=== PATIENT | male | born 1945 | race Caucasian/White ===

== ENCOUNTER → 2017-08-24 | Outpatient (CLI) | payer MEDICARE, BC ==
[~2017-08-24] MED LIST: ASPI-496 PO; ATOR10TA PO; CALC200T20 PO; CHOL10002 PO; FEBU40TA PO; MULT-717 PO; QUIN10TA15 PO
== END | disposition home or self-care (01) ==
LOC: CFH 15:20
PROVIDERS: ATTEND Internal Medicine Nephrology
DX: N28.1 Cyst of kidney, acquired (principal); I12.9 Hypertensive chronic kidney disease with stage 1 through stage 4 chronic kidney disease, or unspecified chronic kidney disease; N18.3 Chronic kidney disease, stage 3 (moderate); D63.1 Anemia in chronic kidney disease; R73.01 Impaired fasting glucose; I48.0 Paroxysmal atrial fibrillation; E55.9 Vitamin D deficiency, unspecified; E78.5 Hyperlipidemia, unspecified; M19.90 Unspecified osteoarthritis, unspecified site; M10.9 Gout, unspecified
CPT/HCPCS: 76770

== ENCOUNTER → 2017-10-25 | Outpatient (CLI) | payer MEDICARE, BC ==
[~2017-10-25] MED LIST changes: +REGADENOSON 0.4 MG/5 ML SYRINGE ONE
== END | disposition home or self-care (01) ==
LOC: CFH 07:50
PROVIDERS: ATTEND Internal Medicine Cardiovascular Disease
DX: I35.8 Other nonrheumatic aortic valve disorders (principal); I10 Essential (primary) hypertension; I48.91 Unspecified atrial fibrillation
CPT/HCPCS: 78452; 93017; 93306; A9502; J2785

== ENCOUNTER 2019-11-08 10:11 | Day surgery (SDC) | payer MEDICARE, BC ==
[~2019-11-08] VITALS: Ht 185.4 cm; Wt 88.2 kg
[~2019-11-08 10:11] MED LIST changes: -REGADENOSON 0.4 MG/5 ML SYRINGE ONE
[2019-11-08 10:42] VITALS: BP 146/106
[2019-11-08] MEDS ORDERED: ICOS1CAP PO (10:56)
[2019-11-08] MEDS ORDERED: MULT-464 PO (10:56)
[2019-11-08] MEDS ORDERED: CHOL10003 PO (10:56)
[2019-11-08] MEDS ORDERED: METH500T5 PO (10:56)
[2019-11-08] MEDS ORDERED: QUIN10TA15 PO (10:56)
[2019-11-08] MEDS ORDERED: CURAMED PO (10:56)
[2019-11-08] MEDS ORDERED: OMEG1CAP34 PO (10:56)
[2019-11-08] MEDS ORDERED: FEBU80TA2 PO (10:56)
[2019-11-08] MEDS ORDERED: CALC1TAB PO (10:56)
[2019-11-08] MEDS ORDERED: RIVA20TA PO (10:56)
[2019-11-08] MEDS ORDERED: SODI650T PO (10:56)
[2019-11-08] MEDS ORDERED: CYAN25009 PO (10:56)
[2019-11-08] MEDS ORDERED: OMEP-110 PO (10:56)
[2019-11-08] MEDS ORDERED: ROSU40TA PO (10:56)
[2019-11-08] MEDS ORDERED: PROPOFOL 10 MG/ML, 20ML ONE (12:27)
[2019-11-08] MEDS ORDERED: SODIUM CHLORIDE FLUSH 10ML SYR IVF SCH (21:00)
== END 2019-11-08 13:34 | disposition home or self-care (01) ==
LOC: CACL 10:11
PROVIDERS: ATTEND Internal Medicine Cardiovascular Disease
DX: I48.19 Other persistent atrial fibrillation (principal); I12.9 Hypertensive chronic kidney disease with stage 1 through stage 4 chronic kidney disease, or unspecified chronic kidney disease; N18.3 Chronic kidney disease, stage 3 (moderate); E78.49 Other hyperlipidemia; M10.9 Gout, unspecified; M19.90 Unspecified osteoarthritis, unspecified site; I70.90 Unspecified atherosclerosis; Z79.01 Long term (current) use of anticoagulants; Z79.82 Long term (current) use of aspirin; Z79.899 Other long term (current) drug therapy; Z98.890 Other specified postprocedural states
CPT/HCPCS: 92960; J2704

== ENCOUNTER → 2020-04-03 | Outpatient (CLI) | payer MEDICARE, BC ==
[~2020-04-03] MED LIST changes: +CALC1TAB PO; +CHOL10003 PO; +CURAMED PO; +CYAN25009 PO; +FEBU80TA2 PO; +ICOS1CAP PO; +METH500T5 PO; +MULT-464 PO; +OMEG1CAP34 PO; +OMEP-110 PO; +RIVA20TA PO; +ROSU40TA PO; +SODI650T PO
== END | disposition home or self-care (01) ==
LOC: STAR 11:48
PROVIDERS: ATTEND Anesthesiology
DX: Z20.828 Contact with and (suspected) exposure to other viral communicable diseases (principal)
CPT/HCPCS: 87635

== ENCOUNTER 2020-04-07 07:16 | Observation (INO) | payer MEDICARE, BC ==
[~2020-04-07] VITALS: Ht 185.4 cm; Wt 89.0 kg
[2020-04-07] MEDS ORDERED: SODIUM CHLORIDE 0.9% 1,000 ML IV SCH (07:30)
[2020-04-07] MEDS ORDERED: SODI650T PO (07:33)
[2020-04-07] MEDS ORDERED: APIX2.5T PO (07:35)
[2020-04-07 07:37] VITALS: BP 141/99
[2020-04-07] MEDS ORDERED: FENTANYL PF 250 MCG/5ML ONE (07:42)
[2020-04-07] MEDS ORDERED: LIDOCAINE-MPF 2% ,5ML ONE (07:43)
[2020-04-07] MEDS ORDERED: LIDOCAINE 1%, 20ML ONE (08:11)
[2020-04-07] MEDS ORDERED: DEXAMETHASONE 4 MG/ML, 1ML ONE ×2 (08:43→08:44)
[2020-04-07] MEDS ORDERED: SUGAMMADEX 200 MG/2 ML IVPush ONE (08:43)
[2020-04-07] MEDS ORDERED: ROCURONIUM 10MG/ML,5ML ONE (08:44)
[2020-04-07] MEDS ORDERED: ONDANSETRON 2MG/ML, 2ML ONE (08:44)
[2020-04-07] MEDS ORDERED: PROPOFOL 10 MG/ML, 20ML ONE (08:44)
[2020-04-07] MEDS ORDERED: SUCCINYLCHOLINE 20 MG/ML, 10ML ONE (08:44)
[2020-04-07] MEDS ORDERED: HEPARIN 1,000 UNITS/ML, 10ML ONE ×3 (09:09→10:13)
[2020-04-07] MEDS ORDERED: PHENYLEPHRINE 10 MG/ML ONE ×2 (10:36)
[2020-04-07] MEDS ORDERED: APIXABAN 5 MG TABLET ONE (11:28)
[2020-04-07] MEDS: APIXABAN 5 MG TABLET PO SCH ×2 (11:30→22:36)
[2020-04-07] MEDS ORDERED: ONDANSETRON 2MG/ML, 2ML IVPush PRN (11:30)
[2020-04-07] MEDS ORDERED: FENTANYL PF 100 MCG/2ML IV PRN (11:30)
[2020-04-07] MEDS ORDERED: LABETALOL 5MG/ML, 20ML IV PRN (11:30)
[2020-04-07] MEDS ORDERED: PROMETHAZINE 25 MG/ML, 1ML IVPush PRN (11:30)
[2020-04-07] MEDS ORDERED: APIXABAN 2.5 MG TABLET PO SCH (11:30)
[2020-04-07] MEDS ORDERED: ACETAMINOPHEN 325 MG TABLET PO PRN ×2 (11:30)
[2020-04-07] MEDS ORDERED: EPHEDRINE 50 MG/ML, 1ML IVPush PRN (11:30)
[2020-04-07] MEDS ORDERED: OXYcodone 5 MG/5 ML ORAL.SOL UDC PO PRN (11:30)
[2020-04-07] MEDS ORDERED: hydrALAzine 20 MG/ML, 1ML IV PRN (11:30)
[2020-04-07] MEDS ORDERED: HYDROmorphone 1 MG/ML, 1ML INJ IVPush PRN (11:30)
[2020-04-07] MEDS ORDERED: MEPERIDINE/PF 25MG/0.5ML IVPush PRN (11:30)
[2020-04-07] MEDS ORDERED: APIXABAN 5 MG TABLET PO ONE ×2 (13:19→23:00)
[2020-04-07 20:38] VITALS: BP 116/82
[2020-04-07] MEDS: CHOLECALCIFEROL 1,000 UNIT TABLET PO SCH (21:00)
[2020-04-07] MEDS ORDERED: CYANOCOBALAMIN 1,000 MCG TABLET PO SCH (21:00)
[2020-04-07] MEDS: METHYLCELLULOSE PO SCH (21:00)
[2020-04-07] MEDS: ICOSAPENT ETHYL PO SCH (21:00)
[2020-04-07] MEDS: COLCHICINE 0.6 MG CAPSULE PO SCH (21:00)
[2020-04-07] MEDS ORDERED: MULTIVITAMINS/MINERALS TABLET PO SCH (21:00)
[2020-04-07] MEDS ORDERED: SODIUM BICARBONATE 650 MG TABLET PO SCH (21:00)
[2020-04-07] MEDS: QUINAPRIL 20MG TABLET PO SCH (22:34)
[2020-04-07 23:37] VITALS: BP 112/72
[2020-04-08] MEDS ORDERED: OMEPRAZOLE 20 MG CAPSULE.DR PO SCH (07:00)
[2020-04-08 08:17] VITALS: BP 115/72
[2020-04-08] MEDS: CHOLECALCIFEROL 1,000 UNIT TABLET PO SCH (08:39)
[2020-04-08] MEDS: COLCHICINE 0.6 MG CAPSULE PO SCH (08:39)
[2020-04-08] MEDS: APIXABAN 5 MG TABLET PO SCH (08:39)
[2020-04-08] MEDS: METHYLCELLULOSE PO SCH (08:40)
[2020-04-08] MEDS: ICOSAPENT ETHYL PO SCH (08:40)
[2020-04-08] MEDS: QUINAPRIL 20MG TABLET PO SCH (08:40)
[2020-04-08] MEDS ORDERED: ATORVASTATIN 80 MG TABLET PO SCH (09:00)
[2020-04-08] MEDS ORDERED: FEBUXOSTAT 40 MG TABLET PO SCH (09:00)
[2020-04-08] MEDS ORDERED: SODIUM BICARBONATE 650 MG TABLET PO SCH (09:00)
[2020-04-08] MEDS ORDERED: APIX5TAB PO (12:12)
[2020-04-08] MEDS ORDERED: COLC0.6C3 PO (12:12)
[2020-04-08 12:55] VITALS: BP 125/83
== END 2020-04-08 13:40 | disposition home or self-care (01) ==
LOC: CACL 07:16 → ORIP 11:13 → 5SO 12:49 → DCLOUNGE 04-08 13:32
PROVIDERS: ADMIT Internal Medicine Cardiovascular Disease; ATTEND Internal Medicine Cardiovascular Disease
DX: I48.91 Unspecified atrial fibrillation (principal); I48.92 Unspecified atrial flutter; I10 Essential (primary) hypertension; E78.5 Hyperlipidemia, unspecified; G47.33 Obstructive sleep apnea (adult) (pediatric); Z79.899 Other long term (current) drug therapy
CPT/HCPCS: 85347; 93308; 93321; 93325; 93613; 93655; 93656; 93657; 93662; C1730; C1732; C1759; C1766; C1893; C1894; G0378; J0330; J1100; J1644; J2370; J2405; J2704; J3010; J3490; 93653

== ENCOUNTER 2020-04-30 10:19 | Day surgery (SDC) | payer MEDICARE, BC ==
[~2020-04-30] VITALS: Ht 185.4 cm; Wt 87.3 kg
[~2020-04-30 10:19] MED LIST changes: +APIX2.5T PO; +APIX5TAB PO; +COLC0.6C3 PO; +PROPOFOL 10 MG/ML, 20ML ONE
[2020-04-30 11:21] VITALS: BP 115/79
[2020-04-30] MEDS ORDERED: SOTA80TA PO (11:32)
[2020-04-30] MEDS ORDERED: CURAMED PO (11:32)
[2020-04-30] MEDS ORDERED: CALC1TAB4 PO (11:32)
[2020-04-30 11:33] LABS: BASOPHILS % (AUTO) 2 % (0-1); EOSINOPHILS % (AUTO) 1 % (1-7); LYMPHOCYTES % (AUTO) 14 % (22-44); MEAN CORPUSCULAR HEMOGLOBIN 31.3 pg (27.5-34.5); MEAN CORPUSCULAR HGB CONC 33.6 g/dL (33.2-36.2); MEAN PLATELET VOLUME 6.6 fL (7.4-10.4); MONOCYTES % (AUTO) 12 % (2-9); NEUTROPHILS % (AUTO) 72 % (42-75); PLATELET COUNT 172 x10^3/uL (130-400); RED BLOOD COUNT 4.27 x10^6/uL (4.38-5.82)
[2020-04-30 11:34] LABS: MD NO
[2020-04-30 11:44] LABS: ANION GAP 5 mmol/L (5-15); CHLORIDE 109 mmol/L (98-107); CREATININE 1.58 mg/dL (0.7-1.3)
== END 2020-04-30 15:15 | disposition home or self-care (01) ==
LOC: CACL 10:19
PROVIDERS: ATTEND Internal Medicine Cardiovascular Disease
DX: I48.91 Unspecified atrial fibrillation (principal); I48.92 Unspecified atrial flutter; I10 Essential (primary) hypertension; E78.5 Hyperlipidemia, unspecified; G47.30 Sleep apnea, unspecified; Z79.01 Long term (current) use of anticoagulants; Z79.899 Other long term (current) drug therapy
CPT/HCPCS: 36415; 80048; 85025; 92960; J2704

== ENCOUNTER → 2020-06-23 | Outpatient (CLI) | payer MEDICARE, BC ==
[~2020-06-23] MED LIST changes: +CALC1TAB4 PO; -PROPOFOL 10 MG/ML, 20ML ONE; +SOTA80TA PO
== END | disposition home or self-care (01) ==
LOC: STAR 09:30
PROVIDERS: ATTEND Internal Medicine Cardiovascular Disease
DX: Z20.822 Contact with and (suspected) exposure to COVID-19 (principal)
CPT/HCPCS: 87635

== ENCOUNTER → 2020-06-23 | Outpatient (CLI) | payer MEDICARE, BC | END | disposition home or self-care (01) | LOC: CFH 10:10 | PROVIDERS: ATTEND Internal Medicine Cardiovascular Disease | DX: I10 Essential (primary) hypertension (principal); I48.91 Unspecified atrial fibrillation; I70.90 Unspecified atherosclerosis; M10.9 Gout, unspecified; I25.84 Coronary atherosclerosis due to calcified coronary lesion | CPT/HCPCS: 71046 ==

== ENCOUNTER → 2020-10-21 | Outpatient (CLI) | payer MEDICARE, BC | END | disposition home or self-care (01) | LOC: CFH 13:36 | PROVIDERS: ATTEND Internal Medicine Cardiovascular Disease | DX: I08.0 Rheumatic disorders of both mitral and aortic valves (principal); I48.91 Unspecified atrial fibrillation; Z79.01 Long term (current) use of anticoagulants | CPT/HCPCS: 93306 ==